=== PATIENT | male | born 1995 | race Caucasian/White ===

== ENCOUNTER 2018-01-06 20:22 | Emergency (ER) | payer BC ==
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
== END 2018-01-06 21:56 | disposition home or self-care (01) ==
LOC: ER 20:22
DX: S90.32XA Contusion of left foot, initial encounter (principal); S20.229A Contusion of unspecified back wall of thorax, initial encounter; V94.89XA Other water transport accident, initial encounter; Y93.89 Activity, other specified; Y92.9 Unspecified place or not applicable
CPT/HCPCS: 70450; 71250; 72125; 99283